=== PATIENT | female | born 1940 | race Caucasian/White ===

== ENCOUNTER 2016-12-06 08:08 | Day surgery (SDC) | payer MEDICARE, OTHER ==
[~2016-12-06 08:08] MED LIST: ACET500CAP PO; ASAB PO; B121000P IM; BACTRONASA; BETAPACE80 PO; CYANOCOBALAMIN; IRON PILL; MEKINIST PO; MULTAQ400 MG PO; NEO-OINT15; NEXIUM40 PO; P5 PO; PRADAXA150 MG PO; PROTONIX PO; PYR200 PO; REFRESH PLUS O0.4 ML OPH; RYTHMOL SR325 MG PO; SILVADENE1 % TOP; TYLENOL 8 HR650 MG PO; VIT D; VITAMIN B-122500 MCG SL; VITAMIN D31000 UNIT PO; WELLXL300 PO; ZOFRAN4 PO; [UNRECOGNIZED DRUG - CODE] PO; [UNRECOGNIZED DRUG - REMARK]
== END 2016-12-06 23:59 | disposition home health service (06) ==
LOC: SDC 08:08
PROVIDERS: Internal Medicine Gastroenterology
PROC: 0D20XUZ Change Feeding Device in Upper Intestinal Tract, External Approach (ICD-10-PCS; principal; 2016-12-06 08:50)
DX: K94.23 Gastrostomy malfunction (principal); C18.9 Malignant neoplasm of colon, unspecified; C43.9 Malignant melanoma of skin, unspecified; R13.10 Dysphagia, unspecified
CPT/HCPCS: 74240

== ENCOUNTER 2016-12-11 21:58 | Emergency (ER) | payer MEDICARE, OTHER | END 2016-12-11 22:20 | disposition home or self-care (01) | LOC: ER 21:58 | DX: S42.202A Unspecified fracture of upper end of left humerus, initial encounter for closed fracture (principal); I48.91 Unspecified atrial fibrillation; Z86.73 Personal history of transient ischemic attack (TIA), and cerebral infarction without residual deficits; Z79.52 Long term (current) use of systemic steroids; W19.XXXA Unspecified fall, initial encounter | CPT/HCPCS: 73030-LT; 96374; 99283; J1170; J2405 ==